=== PATIENT | female | born 1995 | race African-American/Black ===

== ENCOUNTER 2018-12-04 11:36 | Emergency (ER) | payer BC, OTHER ==
[~2018-12-04] VITALS: Ht 165.1 cm; Wt 52.2 kg
[2018-12-04 11:45] VITALS: BP 99/41
== END 2018-12-04 12:25 | disposition home or self-care (01) ==
LOC: ER 11:36
DX: L72.3 Sebaceous cyst (principal)

== ENCOUNTER → 2019-03-10 | Outpatient (CLI) | payer BC, OTHER | LOC: ULTRA 09:54 | DX: N90.7 Vulvar cyst (principal) ==

== ENCOUNTER 2019-07-31 19:14 | Emergency (ER) | payer BC, OTHER ==
[~2019-07-31] VITALS: Ht 165.1 cm; Wt 54.4 kg
[2019-07-31 20:06] LABS: ABSOLUTE NEUTROPHILS 4.3 thou/uL (1.4-8.2); BASOPHILS 0.5 % (0.0-2.0); EOSINOPHILS 1.1 % (0.0-3.0); HEMATOCRIT 40.8 % (37.0-47.0); HEMOGLOBIN 13.7 gm/dL (12.0-15.0); LYMPHOCYTES 28.4 % (24.0-44.0); MCH 31.4 pg (26.0-34.0); MCHC 33.5 g/dL (28.0-37.0); MCV 93.5 fL (80.0-100.0); MONOCYTES 7.5 % (1.0-8.0); PLATELET COUNT 314 thou/uL (150-400); POLYS 62.5 % (36.0-66.0); RBC 4.36 mil/uL (4.20-5.00); RDW 12.4 % (10.5-14.5); WBC 6.9 thou/uL (4.0-11.0)
[2019-07-31 20:21] LABS: CALCIUM 9.2 mg/dL (8.5-10.1); CREATININE 1.1 mg/dL (0.6-1.0); POTASSIUM 4.2 mmol/L (3.5-5.1)
[2019-07-31 20:27] LABS: TOTAL BILIRUBIN 1.1 mg/dL (0.2-1.0); TOTAL PROTEIN 7.8 g/dL (6.4-8.2)
[2019-07-31 20:42] LABS: URINE BILIRUBIN NEGATIVE (Negative); URINE BLOOD 3+ (Negative); URINE CLARITY SL CLOUDY; URINE COLOR RED; URINE GLUCOSE-RANDOM* TRACE (Negative); URINE KETONES 1+ (Negative); URINE PROTEIN (DIPSTICK) 3+ (Negative); URINE SPECIFIC GRAVITY 1.025 (1.005-1.035); URINE UROBILINOGEN >= 8.0 E.U./dl (0.2-1.0)
[2019-07-31 20:45] LABS: URINE LEUKOCYTES-REFLEX 2+ (Negative); URINE NITRITE-REFLEX POSITIVE (Negative)
[2019-07-31 20:49] LABS: CASTS None Seen /LPF (None Seen); CRYSTALS None Seen /LPF (None Seen); SQUAMOUS 4-10 Moderate /LPF (0-3); URINE RBC >20 Many /HPF (0-2)
[2019-07-31 20:52] LABS: URINE WBC-REFLEX 6-15 Few /HPF (0-5)
[2019-07-31 21:22] VITALS: BP 105/59
== END 2019-07-31 21:31 | disposition home or self-care (01) ==
LOC: ER 19:14
PROVIDERS: Emergency Medicine
DX: R10.32 Left lower quadrant pain (principal); R53.1 Weakness; R55 Syncope and collapse; R31.9 Hematuria, unspecified; R51 Headache

== ENCOUNTER 2020-07-05 11:00 | Emergency (ER) | payer OTHER ==
[~2020-07-05] VITALS: Ht 165.1 cm; Wt 56.7 kg
[2020-07-05] MEDS ORDERED: TYLENOL325 M1 (11:28)
[2020-07-05 13:00] VITALS: BP 100/61
== END 2020-07-05 13:00 | disposition home or self-care (01) ==
LOC: ER 11:00
DX: O20.8 Other hemorrhage in early pregnancy (principal); Z3A.22 22 weeks gestation of pregnancy